=== PATIENT | male | born 1975 | race Caucasian/White ===

== ENCOUNTER 2021-02-11 14:41 | Emergency (ER) | payer BC, SELFPAY ==
--- NOTE | ~2021-02-11 | CT_ITS ---
EXAMINATION: CTA BRAIN/CAROTID DATE: 02/11/2021 15:36 INDICATION: Transient ischemic episode with slurred speech and right-sided heaviness TECHNIQUE: Computed tomographic angiography (CTA) of the head and neck was performed with 100 mL Omni paque-350 intravenous contrast. Multiplanar reconstructions and maximum intensity projection 3D-recon structions of the carotid arteries and of the intracranial arteries were created by the technologist on a separate workstation. Precontrast CT of the head was also obtained. Automated exposure control and iterative reconstruction technique were employed.The dose-length product was 1928.48 mGy-cm. COMPARISON: None. FINDINGS: Carotid arteries: Aortic arch and great vessels arising from the arch are normal in caliber with no dissection or evide nt atherosclerotic plaque. Bilateral vertebral arteries are codominant. There is no evident plaque wi th 0% stenosis of the right carotid bulb relative to normal distal artery lumen diameter (NASCET crit eria). There is minimal atherosclerotic plaque with 0% stenosis of the left carotid bulb relative to normal distal artery lumen diameter. Cervical soft tissues are unremarkable. Visualized portions of t he airway and upper lungs are clear. Mild cervical spondylosis. Head: No acute intracranial hemorrhage, acute infarction or abnormal extra axial fluid collection. Ventricl es are normal and symmetric. No mass/mass effect. No abnormally enhancing brain lesions. The callosal thickening in the bilateral maxillary sinuses, left greater than right. The orbits and mastoid air c ells are normal. Intracranial arteries There is atherosclerotic plaque with mild, <50% stenosis at the bilateral carotid siphons. No hemodyn amically significant stenosis in the vertebral, basilar and internal carotid arteries. Vertebral markell sudeep are codominant. There are no aneurysms identified. Both A1 and P1 segments are patent. There ar e also patent bilateral posterior communicating arteries. Cerebral arterial arborization appears symm etric. IMPRESSION: 1. 0% stenosis of the left and right carotid bulbs relative to normal distal artery lumen diameter (N ASCET criteria). 2. Atherosclerotic plaque with <50% stenosis at the bilateral carotid siphons. Otherwise unremarkable cerebral CT angiogram. 3. Normal brain. Reviewed, dictated and finalized at location A. ENDERS IMPRESSION: 1. 0% stenosis of the left and right carotid bulbs relative to normal distal ar cole lumen diameter (NASCET criteria). 2. Atherosclerotic plaque with <50% stenosis at the bilateral carotid siphons. Otherwise unremarkable cerebral CT angiogram. 3. Normal brain.
--- NOTE | ~2021-02-11 | XR_ITS ---
EXAMINATION: XR chest 1V portable DATE: 02/11/2021 15:04 INDICATION: Right hand numbness. Slurred speech. TECHNIQUE: A single frontal view of the chest was obtained. COMPARISON: Chest single view 10/10/2014 FINDINGS: The chest demonstrates clear lungs without pneumonia, pleural effusion, or pneumothorax. Th e heart size is normal. IMPRESSION: 1. No acute cardiopulmonary disease. Reviewed, dictated and finalized at location B. ING MACHINE COIN COLLECTOR
--- NOTE | 2021-02-11 14:47 | ECG_ITS ---
Measurements Intervals [place] Rate: 82 P: 17 NM: 146 QRS: -26 QRSD: 98 T: 71 QT: 376 QTc: 440 Interpretive Statements SINUS RHYTHM LEFT VENTRICULAR HYPERTROPHY WITH ST-T CHANGE INFERIOR INFARCT, AGE INDETERMINATE BASELINE ARTIFACT- II, V2-V6 ABNORMAL ECG Electronically Signed On 02-11-2021 16:08:32 EFFICIENCY ENGINEER by Get Stahl D.O.
[2021-02-11 14:50] VITALS: BP 172/128; PULSE 88; RESP 18; TEMP 35.8; O2SAT 98
--- NOTE | 2021-02-11 15:22 | ED.GENADULT ---
HPI - General Adult General Chief complaint: Neuro Symptoms/Deficit Stated complaint: neuro symptoms, hand heaviness, slurred speech Time Seen by Provider: 02/11/21 15:10 Source: patient History of Present Illness HPI narrative: Patient is a 45 y/o male complaining of right hand and right leg heaviness starting about 2:15 PM today. He states that he was talking on the phone and he had difficulty with speech. There is no known alleviating or exacerbating factor, but his symptoms resolved spontaneously. Related Data Allergies Allergy/AdvReac Type Severity Reaction Status Date / Time amoxicillin Allergy Unknown Unverified 10/10/14 12:07 Review of Systems Constitutional: Constitutional: Denies chills, Denies fever(s), Denies headache(s) and Reports weakness Eyes: Eyes: Denies blurry vision ENT: Denies headache(s) and Denies neck pain Cardiovascular: Cardiovascular: Denies chest pain and Denies dyspnea Respiratory: Respiratory: Denies cough and Denies dyspnea Gastrointestinal: Gastrointestinal: Denies abdominal pain, Denies diarrhea, Denies nausea and Denies vomiting Genitourinary: Genitourinary: Denies hematuria and Denies dysuria Musculoskeletal: Musculoskeletal: Denies back pain and Denies neck pain Neurologic: Reports as per HPI, Reports Abnormal speech present, Denies headache(s) and Reports weakness PMFSH Past Medical History Medical History (Updated 02/11/21 @ 17:53 by Lauren Unger MD) Hyperlipidemia Hypertension Exam Const: General: no acute distress and well developed Orientation/consciousness: oriented to person, oriented to place, oriented to time and patient oriented x3 HENMT: Head: normocephalic Ears: external ears normal General nose exam: Normal external nose present Eyes: General: appearance normal, both eyes and all related structures Conjunctivae: conjunctivae normal Neck: Neck: normal visual inspection and full ROM Chest: Chest palpation & inspection: normal inspection of the chest and no tenderness Resp: Effort & Inspection: normal respiratory effort Auscultation: clear to auscultation bilaterally Cardio: Rate: regular rate Rhythm: regular rhythm GI: GI Palp: No abdominal tenderness and Yes Soft to palpation Skin: General skin exam: normal color and turgor normal Neuro: General: oriented to person, oriented to place, oriented to time and patient oriented x3 Cognition (Neuro): normal cognition Extrem: General: normal to inspection, full ROM and no pedal edema Psych: Appearance: grossly normal Mental Status: mental status grossly normal Affect: normal affect Course Reevaluation(s) Reevaluation #1: I advised patient to be admitted for observation and further work up. However, patient declined and does not want to be admitted or transferred. He is aware of the risks of stroke, permanent disability and even . He wants to leave and follow up with his PCP for further outpatient work up. He is awake, alert and competent to make medical decision for himself. He also refuses to sign AMA documents. Date: 02/11/21 Time: 17:50 Vital Signs Vital signs: Vital Signs Temperature 35.8 C L 02/11/21 14:50 Pulse Rate 88 02/11/21 14:50 Respiratory Rate 18 02/11/21 14:50 Blood Pressure 172/128 H 02/11/21 14:50 Pulse Oximetry 98 02/11/21 14:50 Temperature 35.8 C L 02/11/21 14:50 Pulse Rate 76 02/11/21 15:46 Respiratory Rate 13 02/11/21 15:46 Blood Pressure 166/108 H 02/11/21 15:46 Pulse Oximetry 98 02/11/21 15:46 Medical Decision Making Vital Signs Vital Signs: Vital Signs Temperature 35.8 C L 02/11/21 14:50 Pulse Rate 88 02/11/21 14:50 Respiratory Rate 18 02/11/21 14:50 Blood Pressure 172/128 H 02/11/21 14:50 Pulse Oximetry 98 02/11/21 14:50 Temperature 35.8 C L 02/11/21 14:50 Pulse Rate 76 02/11/21 15:46 Respiratory Rate 13 02/11/21 15:46 Blood Pressure 166/108 H 02/11/21 15:46 Pulse Oximetry 98 02/11/21 15:4
[2021-02-11 15:38] VITALS: PULSE 76; RESP 15; O2SAT 100
[2021-02-11 15:39] VITALS: BP 176/107; PULSE 81; RESP 17; O2SAT 98
[2021-02-11 15:43] LABS: Glucose Point of Care 74 mg/dl (65-105)
[2021-02-11 15:45] VITALS: PULSE 78; RESP 12; O2SAT 99
[2021-02-11 15:46] VITALS: BP 166/108; PULSE 76; RESP 13; O2SAT 98
[2021-02-11 15:47] LABS: Basophils Absolute Auto 0.1 K/mm3 (0.0-0.1); Eosinophils Absolute Auto 0.2 K/mm3 (0-0.3); Eosinophils Percent Auto 1.5 % (0-4.4); Hematocrit 52.4 % (42.0-52.0); Hemoglobin 18.1 g/dL (14.0-18.0); Immature Granulocyte Absolute 0.04 K/mm3 (0.00-0.031); Immature Granulocyte Percent A 0.4 % (0-0.5); Lymphocytes Absolute Auto 3.57 K/mm3 (0.9-3.2); Lymphocytes Percent Auto 32.5 % (18.3-44.2); Mean Corpuscular HGB Conc 34.5 g/dl (32-36); Mean Corpuscular Hemoglobin 32.1 pg (26-34); Mean Corpuscular Volume 93.1 fl (80-100); Mean Platelet Volume 8.3 fl (7.4-10.4); Monocytes Absolute Auto 0.9 K/mm3 (0.1-0.6); Monocytes Percent Auto 8.3 % (2.6-8.5); Neutrophils Absolute Auto 6.2 K/mm3 (1.3-6.7); Neutrophils Percent Auto 56.3 % (45.5-73.1); Platelet Count Result 289 k/mm3 (150-375); Red Blood Count 5.63 M/mm3 (4.6-6.20); Red Cell Distribution Width 12.5 % (11.5-14.5)
[2021-02-11 15:50] LABS: INR 0.9; Prothrombin Time 12.2 Seconds (11.1-14.7)
[2021-02-11 15:51] LABS: Partial Thromboplastin Time 24.2 SECONDS (22.3-36.8)
[2021-02-11 15:52] LABS: Alanine Aminotransferase 26 U/L (4-50); Albumin Level 4.9 g/dL (3.5-5.1); Alkaline Phosphatase 94 U/L (38-126); Anion Gap 12 mmol/L (8-16); Aspartate Amino Transferase 28 U/L (17-59); Bilirubin,Total 0.8 mg/dL (0.2-1.3); Blood Urea Nitrogen 18 mg/dL (9-20); Calcium 9.3 mg/dL (8.4-10.2); Carbon Dioxide 23 mmol/L (22-30); Chloride 103 mmol/L (98-107); Estimated CRCL calculation 115 ml/min; Estimated Glomerular Filt Rate > 60; Glucose 84 mg/dL (65-110); Sodium 138 mmol/L (137-145)
[2021-02-11 16:04] LABS: Troponin I < 0.012 ng/mL (0.000-0.034)
--- NOTE | 2021-02-11 18:13 | PC.NURSE ---
Pt refused to sign AMA pt leaves no acute distress, pt BP 194/125, pt aware and takes blood pressure medications, MD Unger aware of blood pressure, pt still would like to leave AMA
[2021-02-11 18:15] VITALS: BP 194/125; PULSE 78; RESP 18; O2SAT 100
== END 2021-02-11 18:15 | disposition left against medical advice (07) ==
PROVIDERS: Emergency Medicine; Emergency Provider Emergency Medicine
DX: G45.9 Transient cerebral ischemic attack, unspecified (principal); I10 Essential (primary) hypertension; E78.5 Hyperlipidemia, unspecified; R94.31 Abnormal electrocardiogram [ECG] [EKG]
CPT/HCPCS: 36415; 70496; 70498; 71045; 80053; 82948; 84484; 85025; 85610; 85730; 93005; 99284; Q9967